=== PATIENT | female | born 1940 | race Caucasian/White ===

== ENCOUNTER 2024-06-27 17:48 | Emergency (ER) | payer MEDICARE, BC, SELFPAY ==
[2024-06-27 18:25] VITALS: BP 179/89; PULSE 70; RESP 20; TEMP 36.8; O2SAT 95; BMI 29.8
--- NOTE | 2024-06-27 18:52 | EKG_ITS ---
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1940 Requested By: Kevin Garner ([facility]) Order Number: [id number] Reading MD: Kevin Garner ([facility]) Measurements Intervals [place] Rate: 71 P: 79 NM: 229 QRS: -68 QRSD: 135 T: -1 QT: 419 QTc: 456 Interpretive Statements SINUS RHYTHM WITH FIRST DEGREE AV BLOCK RIGHT BUNDLE BRANCH BLOCK [120+ ms QRS DURATION, UPRIGHT V1, 40+ ms S IN I/aVL/V4/V5/V6] LEFT ANTERIOR FASCICULAR BLOCK [QRS AXIS <= -45, QR IN I, RS IN II] VOLTAGE CRITERIA FOR LVH [MEETS CRITERIA IN ONE OF: R(aVL), S(V1), R(V5), R(V5/V6)+S(V1)] POSSIBLE SEPTAL MYOCARDIAL INFARCTION , PROBABLY OLD [30 ms Q WAVE IN V1/V2] Compared to ECG 11/05/2023 11:49:34 No significant changes /store/S0/[id number].pdf
--- NOTE | 2024-06-27 18:52 | XR_ITS ---
Examination: CT brain head without contrast. 2-D sagittal coronal reconstructions Date and time of exam:June 27, 2024 1917 hrs. Comparison February 21, 2020 Indications: High blood pressure with headaches and dizziness beginning 3 days ago CTDI: vol (mGy):45.6 DLP: (mGycm):946 Technique: Multiple CT axial sections of the brain have been obtained, 5 mm slice thickness. Contrast has not been administered. 2-D sagittal, coronal reconstructions have been obtained Low dose protocols were performed. One or more of the following dose reduction techniques were used; automated exposure control, adjustment of the mA and/or KV according to patient size, use of iterative reconstruction technique. Findings: No significant ventricular enlargement. Intra-axial or extra-axial hemorrhage density is not seen. No mass effect or midline shift Basal cisterns are not remarkable. Fourth ventricle is midline. Cranial vault intact. Impression: Negative for acute hemorrhage, mass effect or midline shift As clinically warranted, brain MRI follow-up would best assess for acute ischemic change
--- NOTE | 2024-06-27 18:54 | PD.EDRME ---
Rapid Medical Screening Exam RME Arrival date/time: 06/27/24 17:48 84-year-old female with past medical history essential hypertension, depression, GERD, hypothyroidism, headache, dizziness, and high blood pressure. Patient reports was at doctor's office receiving pain shots to her back and was told her blood pressure was elevated and instructed to go to the ER for evaluation. Chief Complaint: General Adult/Misc Complain Time Seen by Provider: 06/27/24 18:49 Vital signs: Vital Signs Temperature 98.2 F 06/27/24 18:25 Pulse Rate 70 06/27/24 18:25 Respiratory Rate 20 06/27/24 18:25 Blood Pressure 179/89 H 06/27/24 18:25 Pulse Oximetry (%) 95 06/27/24 18:25 Oxygen Delivery Method Room Air 06/27/24 18:25 Vital signs reviewed by provider: Yes
[2024-06-27 19:32] LABS: Basophils % (Auto) 0 % (0-2.5); Eosinophils % (Auto) 0 % (0-10); Hematocrit 42.2 % (36.0-46.0); Hemoglobin 13.9 g/dL (12.0-16.0); Immature Granulocytes % (Auto) 1 % (0-0); Immature Granulocytes Auto 0.04 Thou/mm3 (0.00-0.00); Lymphocytes # (Auto) 0.8 Thou/mm3 (1.0-4.8); Lymphocytes % (Auto) 16 % (10-50); Mean Corpuscular HGB Conc 32.9 g/dl (31.0-37.0); Mean Corpuscular Hemoglobin 31.7 pg (25.0-35.0); Mean Corpuscular Volume 96 fL (80-100); Monocytes # (Auto) 0.1 Thou/mm3 (0.0-0.8); Monocytes % (Auto) 1 % (0-12); Neutrophils % (Auto) 81 % (37-80); Nucleated Red Blood Cell % 0 /100 WBC (0); Platelet Count 282 Thou/mm3 (140-440); RDW Standard Deviation 47.7 fL (36.4-46.3); Red Blood Count 4.38 Miln/mm3 (4.00-5.20)
[2024-06-27 19:37] LABS: Prothrombin Time 11.1 Seconds (9.0-12.2)
[2024-06-27 19:39] LABS: B-Type Natriuretic Peptide 144 pg/mL (0-100)
[2024-06-27 19:49] LABS: Collection Type, Urine Clean Catch; RBC,Urine 0 /hpf (0-3); WBC,Urine 0 /hpf (0-5)
[2024-06-27 19:52] LABS: Alanine Aminotransferase 7 U/L (10-49); Albumin, Serum 4.7 gm/dL (3.4-4.8); Albumin/Globulin Ratio 1.3 (1.2-2.2); Alkaline Phosphatase 98 U/L (46-116); Anion Gap 4 (7-16); Aspartate Amino Transferase 22 U/L (0-34); BUN/Creatinine Ratio 15 Ratio (12-20); Bilirubin,Total 0.4 mg/dL (0.3-1.2); Blood Urea Nitrogen 17 mg/dL (9-23); Calcium 9.9 mg/dL (8.3-10.6); Calcium (Corrected) 9.9 mg/dL (8.5-10.1); Chloride 105 mMol/L (98-107); Creatinine (Component) 1.1 mg/dL (0.6-1.3); Estimated Creatinine Clearance 34.6 mL/min (>60); Globulin 3.6 gm/dL (2.3-3.5); Glucose 133 mg/dL (74-106); Magnesium 2.2 mg/dL (1.6-2.6); Osmolality,Calculated 271 (275-295); Potassium 4.5 mMol/L (3.4-5.1); Sodium 134 mMol/L (136-145); Total Protein 8.3 gm/dL (5.7-8.2); Troponin I < 0.020 ng/mL (0.0-0.045); eGFR 49 See Note
[2024-06-27 20:02] VITALS: BP 220/112; PULSE 67
[2024-06-27] MEDS: hydrALAZINE HCL 10 MG TABLET PO (20:02)
[2024-06-27 20:19] LABS: Bacteria,Urine 1+; Bilirubin,Urine Negative (Negative); Blood,Urine Negative (Negative); Clarity,Urine Clear (Clear/Hazy); Color,Urine Lt-Yellow (Lt Yel-Yel); Glucose, Urine Trace (Negative); Ketones,Urine Negative (Negative); Leukocyte Esterase,Urine Negative (Negative); Nitrite,Urine Negative (Negative); PH,Urine 6.5 (5.0-7.0); Protein,Urine Trace (Neg - Trace); Specific Gravity,Urine 1.016 (1.001-1.035); Squamous Epithelial Cell,Urine < 1 /hpf (0-5); Urobilinogen,Urine Negative mg/dL (0.0-1.0)
[2024-06-27 20:34] LABS: Culture Indicated,Urine Yes
[2024-06-27 21:06] VITALS: BP 199/82; PULSE 72; RESP 18; O2SAT 99
[2024-06-27 21:34] VITALS: BP 203/114; PULSE 67; RESP 17; TEMP 36.7; O2SAT 96
[2024-06-27 23:00] VITALS: BP 241/131; PULSE 71; RESP 16; O2SAT 96
--- NOTE | 2024-06-27 23:09 | EDNOTE_ITS ---
ED General RME/HPI General Chief complaint: General Adult/Misc Complain Stated complaint: HIGH BLOOD PRESSURE 147/120 Time Seen by Provider: 06/27/24 18:49 Arrival date/time: 06/27/24 17:48 RME / HPI RME / HPI narrative: 06/27/24 17:48 84-year-old female with past medical history essential hypertension, depression, GERD, hypothyroidism, headache, dizziness, and high blood pressure. Patient reports was at doctor's office receiving pain shots to her back and was told her blood pressure was elevated and instructed to go to the ER for evaluation. ---- Dr. Egan?s Main ED Evaluation: 84yo female with pmhx HTN, HLD presents to the ED for a chief complaint of high blood pressure. Patient states she was at her PCP's office this morning receiving 4 shots in her back, reporting she was informed her blood pressure was elevated, and was advised to come in for evaluation. Patient states she normally takes her BP medications in the morning, but did not take them until she got home from her doctor's appointment this afternoon. She reports an associated headache. She denies any dizziness, weakness or any other associated symptoms. PCP: Dr. Galo Related Data Home Medications ?Medication ?Instructions ?Recorded ?Confirmed gabapentin 100 mg capsule 100 mg PO TID 04/11/20 12/12/23 zolpidem 5 mg tablet 5 mg PO QHSPRN PRN Insomnia 04/11/20 12/12/23 levothyroxine 125 mcg tablet 125 mcg PO QDAY 02/18/21 12/12/23 benzonatate 200 mg capsule 200 mg PO BID PRN 12/12/23 12/12/23 clonidine HCl 0.1 mg tablet 0.1 mg PO BID 12/12/23 12/12/23 hydrocodone 2.5 mg-acetaminophen 1 tab PO Q6H PRN 12/12/23 12/12/23 325 mg tablet losartan 100 mg tablet 100 mg PO QDAY 12/12/23 12/12/23 ondansetron HCl 8 mg tablet 8 mg PO Q8H 12/12/23 12/12/23 pantoprazole 20 mg tablet,delayed 20 mg PO QDAY 12/12/23 12/12/23 release sertraline 25 mg tablet 25 mg PO QDAY 12/12/23 12/12/23 zolpidem 5 mg tablet 5 mg PO QHS 12/12/23 12/12/23 Allergies Allergy/AdvReac Type Severity Reaction Status Date / Time morphine AdvReac Mild Rash Verified 06/27/24 17:51 Review of Systems Review of Systems Systems Reviewed: All systems reviewed, normal except as documented Narrative Review of Systems: Gen: No fever, no chills, no weight loss, + elevated BP EYES: No discharge, no visual changes, no pain HEENT: No ear pain, no congestion, no sore throat PULM: No shortness of breath, no cough, no congestion CV: No chest pain, no dyspnea on exertion, no palpitations GI: No nausea, no vomiting, no diarrhea, no pain, no constipation : No frequency, no urgency, no dysuria Musc/skel: No joint pain, no back pain Skin: No rash. Warm and dry. Psyc: No hallucinations, no depression Heme/Lymph: No easy bleeding or bruising tendencies Neuro: No weakness, + headache Past Medical History Past Medical History NEUROLOGIC: Negative Neurological Disorders or Seizures CARDIAC: Positive Hypercholesterolemia and Hypertension; Negative Cardiac Disorders or Congestive Heart Failure RESPIRATORY: Negative Chronic Obstructive Pulmonary Disease (COPD) or Asthma GASTROINTESTINAL: Positive Gastrointestinal Disorders, Colitis, Diverticulitis, Diverticulosis, Ulcer, Hiatal Hernia, Gastroesophageal Reflux Disease and Obesity GENITOURINARY: Positive Genitourinary Disorders; Negative Renal Disease REPRODUCTIVE: Positive Endometriosis and Previous Pregnancies MUSCULOSKELETAL: Positive Musculoskeletal Disorders, Bone Cancer and Arthritis ENT: Positive Cataracts and Blind ENDOCRINE: Positive Endocrine Disorders, Hyperthyroidism and Hypothyroidism; Negative Diabetes Mellitus Type 1 or Diabetes Mellitus Type 2 HEMATOLOGIC: Negative Blood Disorders or Sickle Cell Disease PSYCHO/SOCIAL: Positive Depression and Anxiety OTHER HISTORY: Positive Hospitalization, Shingles, Falls, Chicken Pox, Mumps and Ovarian Cancer; Negative Autoimmune Disease, Down Syndrome, Developmental Delay, Blood Transfusions, Anesthesia Reactions, MRSA, VRSA, Vancomycin-Resistant Enterococci or Cancer Family History FAMILY HISTORY: Positive Family Respiratory Disorders, Family Gastrointestinal Problems, Family Cancer and Family Surgery; Negative Family Neurologic Problems, Family Psychiatric Problems, Family Cardiac Disorders or Family Anesthesia Reaction Surgical History SURGICAL: Positive Eye Surgery, Tonsillectomy, Abdominal Surgery, Tracheostomy, Joint Replacement, Hysterectomy and Section; Negative Cardiac Surgery or Endocrine Surgery Social History SMOKING STATUS: Never smoker SECOND HAND EXPOSURE: No SUBSTANCE USE: does not use ED Exam Narrative Physical exam: GENERAL APPEARANCE: AxOx4, generally well-appearing, no acute distress. HEENT: NC, AT. MMM. EOMI, clear conjunctiva, oropharynx clear. NECK: Supple without lymphadenopathy. No stiffness or restricted ROM. HEART: Normal rate and regular rhythm, normal S1/S1, no m/r/g LUNGS: CTAB, moving air well. No crackles or wheezes are heard. ABDOMEN: Soft, nontender, nondistended with good bowel sounds heard. BACK: No midline C/T/L spine pain or deformity, No CVAT, no obvious deformity. EXTREMITIES: Without cyanosis, clubbing or edema. MUSCULOSKELETAL: FROM of all major joints, no chest tenderness NEUROLOGICAL: Grossly nonfocal. Alert and oriented, moving all 4 extremities. CN not formally tested but appear grossly intact. Observed to ambulate with normal gait. Skin: Warm and dry without any rash. Course Quality Measures none Orders Category Date Time Status EKG (ED ONLY) *Do not use* NOW Care 06/27/24 18:[address] head/brain wo con Stat Exams 06/27/24 18:52 Completed EKG (ED Only) Stat Exams 06/27/24 18:52 Draft B-Type Natriuretic Peptide Stat Lab 06/27/24 19:07 Completed CBC Stat Lab 06/27/24 19:07 Completed Comprehensive Metabolic Panel Stat Lab 06/27/24 19:07 Completed Magnesium Stat Lab 06/27/24 19:07 Completed Partial Thromboplastin Time Stat Lab 06/27/24 19:07 Completed Prothrombin Time with INR Stat Lab 06/27/24 19:07 Completed Troponin I Stat Lab 06/27/24 19:07 Completed Urinalysis, C/S if Indicated Stat Lab 06/27/24 19:44 Completed Urine Culture Stat Lab 06/27/24 19:44 Received Acetaminophen Tab [Tylenol Tab] Med 06/27/24 23:09 Discontinued 650 mg PO X1 ONE Ketorolac Inj [Toradol Inj] Med 06/27/24 23:10 Discontinued 30 mg IM X1 ONE hydrALAZINE HCL [Apresoline] Med 06/27/24 18:54 Discontinued 10 mg PO X1 ONE hydrALAZINE HCL [Apresoline] Med 06/27/24 18:53 Discontinued 25 mg PO X1 ONE Vital Signs Vital signs: Vital Signs Temperature 98.2 F 06/27/24 18:25 Pulse Rate 70 06/27/24 18:25 Respiratory Rate 20 06/27/24 18:25 Blood Pressure 179/89 H 06/27/24 18:25 Pulse Oximetry (%) 95 06/27/24 18:25 Oxygen Delivery Method Room Air 06/27/24 18:25 Pulse ox is 95% on room air, which is normal according to my interpretation. [facility] Patient data External records reviewed:: [facility] previous records (Per chart review, patient was seen here on 03/23/24 for COVID.) Clinical information provided by:: patient Social determinants that could affect healthcare access:: none Patient has the following chronic illnesses:: HTN, HLD How is presenting disease/condition affected by chronic disease/condition?: c aused by Evaluation data The following diagnostics were reviewed and interpreted by me:: lab results, radiology exam(s) and EKG tracing(s) Lab and/or radiology exams considered but not ordered:: none Interpretation Summary: [facility] Report Signed Patient: ABHAY SPRING. Record#: [id number] Birthdate: 1940 Age/Sex: 84 / F Location: [facility] Attending Dr: Ordering Physician: Cami Garner (DEMI)Kevin Date of Service: 06/27/24 Procedure(s): CT head/brain wo [facility] Accession Number(s): [id number] cc: Ravi Estrada MD; Eh Galo MD; Cami Garner (DEMI),Kevin SIMMS~ Examination: CT brain head without contrast. 2-D sagittal coronal reconstructions Date and time of exam:June 27, 2024 1917 hrs. Comparison February 21, 2020 Indications: High blood pressure with headaches and dizziness beginning 3 days ago CTDI: vol (mGy):45.6 DLP: (mGycm):946 Technique: Multiple CT axial sections of the brain have been obtained, 5 mm slice thickness. Contrast has not been administered. 2-D sagittal, coronal reconstructions have been obtained Low dose protocols were performed. One or more of the following dose reduction techniques were used; automated exposure control, adjustment of the mA and/or KV according to patient size, use of iterative reconstruction technique. Findings: No significant ventricular enlargement. Intra-axial or extra-axial hemorrhage density is not seen. No mass effect or midline shift Basal cisterns are not remarkable. Fourth ventricle is midline. Cranial vault intact. Impression: Negative for acute hemorrhage, mass effect or midline shift As clinically warranted, brain MRI follow-up would best assess for acute ischemic change Dictated By: Ravi Estrada MD Signed By: <Electronically signed by Ravi Estrada MD in OV> 06/27/241957 EKG done at 1859, sinus rhythm, rate of 71, widened QRS, RBBB, no acute ST or T wave changes, no STEMI, according to my interpretation. Medications Medications considered but not ordered:: none Medication administrations:: Medication Administration History Discontinued Medications Acetaminophen (Acetaminophen 325 Mg Tablet) 650 mg PO X1 ONE Stop: 06/27/24 23:10 Last Admin: 06/27/24 23:21 Dose: 650 mg Documented By: RH Hydralazine HCl (Hydralazine Hcl 25 Mg Tablet) 25 mg PO X1 ONE Stop: 06/27/24 18:54 Last Admin: 06/27/24 19:16 Dose: Not Given Documented By: EE Non-Admin Reason: Discontinued Hydralazine HCl (Hydralazine Hcl 10 Mg Tablet) 10 mg PO X1 ONE Stop: 06/27/24 18:55 Last Admin: 06/27/24 20:02 Dose: 10 mg Documented By: EE Ketorolac Tromethamine (Ketorolac Inj 60 Mg/2 Ml Vial) 30 mg IM X1 ONE Stop: 06/27/24 23:11 Last Admin: 06/27/24 23:19 Dose: 30 mg Documented By: RH see above Consultations Consultation(s) initiated? (list below): No Diagnosis Differential Diagnosis ED Complaint MDM: headache, HTN urgency, HTN emergency Most likely diagnosis given after review of the tests above:: see below Admission Indicated Admission indicated?: not indicated Explain why admission is indicated or not indicated:: Patient is stable for outpatient management. Admission Request Was there a request for admission?: No Disposition Plan Disposition Plan: Discharge Discharge Attestation Discharge Attestation: The patient and all family members were given an opportunity to ask questions and understood the discharge instructions. Discharge instructions specifically effects, indications for sooner follow up or return to the emergency department, and the expected course of current diagnosis. Patient condition: Stable Medical Decision Making MDM Narrative MDM Narrative: Ms. Spring is a very pleasant, well-appearing female who was sent in by her pain specialist due to elevated blood pressures. She is otherwise asymptomatic and is essentially sent in for a incidental measurement during her triage. She has been compliant with her blood pressure medicines however she does note that she took her dose today a little bit later than normal due to her pain specialist appointment. Neurologically she is intact without signs of distress. Suspect this is more of a component of chronic elevated blood pressure and as she is asymptomatic without signs of endorgan damage she is appropriate for outpatient follow-up. Laboratory testing and head CT were sent via the RME process which shows no acute findings. This further corroborates the lack of endorgan damage and although her blood pressure is markedly high, there is no indication for immediate reduction emergently of her blood pressure and can be monitored and managed by her primary care physician. Due to the actual value and elevated blood pressure she does meet criteria for hypertensive urgency without emergency Scribe Attestation: 06/27/24 - I, Sandee Sheehan, scribing for and in the presence of Dr. Egan. Differential Diagnosis Differential Diagnosis: headache, HTN urgency, HTN emergency Lab Data 06/27/24 19:07 06/27/24 19:07 Labs: Lab Results 06/27/24 06/27/24 Range/Units 19:07 19:44 WBC 5.0 (3.6-11.0) Thou/mm3 RBC 4.38 (4.00-5.20) Miln/mm3 Hgb 13.9 (12.0-16.0) g/dL Hct 42.2 (36.0-46.0) % MCV 96 (80-100) fL MCH 31.7 (25.0-35.0) pg MCHC 32.9 (31.0-37.0) g/dl RDW Std Deviation 47.7 H (36.4-46.3) fL Plt Count 282 (140-440) Thou/mm3 Neut % (Auto) 81 H (37-80) % Lymph % (Auto) 16 (10-50) % Frio % (Auto) 1 (0-12) % Eos % (Auto) 0 (0-10) % Baso % (Auto) 0 (0-2.5) % Neut # (Auto) 4.0 (1.8-7.7) Thou/mm3 Lymph # (Auto) 0.8 L (1.0-4.8) Thou/mm3 Frio # (Auto) 0.1 (0.0-0.8) Thou/mm3 Eos # (Auto) 0.0 (0.0-0.5) Thou/mm3 Baso # (Auto) 0.0 (0.0-0.2) Thou/mm3 Immature Gran # (Auto) 0.04 H (0.00-0.00) Thou/mm3 Absolute Nucleated RBC 0.00 (0.00-0.00) Thou/mm3 Immature Gran % 1 H (0-0) % Nucleated RBC % 0 (0) /100 WBC PT 11.1 (9.0-12.2) Seconds INR 1.0 (0.9-1.3) APTT 25.0 (22.0-36.0) Seconds Sodium 134 L (136-145) mMol/L Potassium 4.5 (3.4-5.1) mMol/L Chloride 105 (98-107) mMol/L Carbon Dioxide 25.0 (20.0-31.0) mMol/L Anion Gap 4 L (7-16) BUN 17 (9-23) mg/dL Creatinine 1.1 (0.6-1.3) mg/dL Estim Creat Clear Calc 34.6 L (>60) mL/min eGFR 49 L (60 - ) See Note BUN/Creatinine Ratio 15 (12-20) Ratio Glucose 133 H (74-106) mg/dL Calculated Osmolality 271 L (275-295) Calcium 9.9 (8.3-10.6) mg/dL Corrected Calcium 9.9 (8.5-10.1) mg/dL Magnesium 2.2 (1.6-2.6) mg/dL Total Bilirubin 0.4 (0.3-1.2) mg/dL AST 22 (0-34) U/L ALT 7 L (10-49) U/L Alkaline Phosphatase 98 (46-116) U/L Troponin I < 0.020 (0.0-0.045) ng/mL B-Natriuretic Peptide 144 H (0-100) pg/mL Total Protein 8.3 H (5.7-8.2) gm/dL Albumin 4.7 (3.4-4.8) gm/dL Globulin 3.6 H (2.3-3.5) gm/dL Albumin/Globulin Ratio 1.3 (1.2-2.2) Ur Collection Type Clean Catch Urine Color Lt-Yellow (Lt Yel-Yel) Urine Clarity Clear (Clear/Hazy) Urine pH 6.5 (5.0-7.0) Ur Specific [place] 1.016 (1.001-1.035) Urine Protein Trace (Neg - Trace) Urine Glucose (UA) Trace (Negative) Urine Ketones Negative (Negative) Urine Blood Negative (Negative) Urine Nitrite Negative (Negative) Urine Bilirubin Negative (Negative) Urine Urobilinogen (Auto) Negative (0.0-1.0) mg/dL Ur Leukocyte Esterase Negative (Negative) Urine RBC 0 (0-3) /hpf Urine WBC 0 (0-5) /hpf Ur Squamous Epith Cells < 1 (0-5) /hpf Urine Bacteria 1+ A (None) Ur Culture Indicated? Yes Discharge Plan Plan Patient Disposition: HOME (Self Care) Prescriptions/Referrals Prescriptions/Med Rec: No Action benzonatate 200 mg capsule 200 mg PO BID PRN losartan 100 mg tablet 100 mg PO QDAY pantoprazole 20 mg tablet,delayed release (DR/EC) 20 mg PO QDAY sertraline 25 mg tablet 25 mg PO QDAY zolpidem 5 mg tablet 5 mg PO QHS clonidine HCl 0.1 mg tablet 0.1 mg PO BID ondansetron HCl 8 mg tablet 8 mg PO Q8H hydrocodone-acetaminophen 2.5-325 mg tablet 1 tab PO Q6H PRN levothyroxine 125 mcg tablet 125 mcg PO QDAY Patient Comments: 125 mcg PO ACBR zolpidem 5 mg Tablet 5 mg PO QHSPRN PRN (Reason: Insomnia) Hold Instructions: Resume on 07/22/22. gabapentin 100 mg Capsule 100 mg PO TID Referrals: Eh Galo MD [Primary Care Provider] - In 1 week Problem List Clinical Impression: Hypertension, Headache Patient/Caregiver Discharge Instructions Education Materials: Self-Care for Headaches, ED Hypertension, Established Additional Instructions: Follow-up with your primary care doctor in 1 to 2 days for recheck. You can return to the emergency department sooner symptoms worsen or if you notice any new, concerning issues Print Language: Northern Irish Stand Alone Forms: [employer] Award Info., Patient Portal Info Letter
[2024-06-27] MEDS: KETOROLAC INJ 60 MG/2 ML VIAL 30 MG IM (23:19)
[2024-06-27] MEDS: ACETAMINOPHEN 325 MG TABLET 650 MG PO (23:21)
[2024-06-28] VITALS: BP 239/121; PULSE 69; RESP 20; O2SAT 97
--- NOTE | 2024-06-28 00:29 | PC.NURSE ---
0000 put in DC orders for Pt, RN informed MD Pts Blood Pressure still high at (239/121). said to DC Pt and that they could take home BP Meds in the AM for the high BP.
== END 2024-06-28 00:25 | disposition home or self-care (01) ==
PROVIDERS: Emergency Provider Emergency Medicine; PCP Family Medicine
DX: I10 Essential (primary) hypertension (principal); I44.0 Atrioventricular block, first degree; I45.10 Unspecified right bundle-branch block; I44.4 Left anterior fascicular block; R93.0 Abnormal findings on diagnostic imaging of skull and head, not elsewhere classified
CPT/HCPCS: 36415; 70450; 80053; 81001; 83735; 83880; 84484; 85025; 85610; 85730; 87077; 87086; 87186; 93005; 96372; 99284; J1885; A9270

== ENCOUNTER → 2024-08-23 | Outpatient (CLI) | payer MEDICARE, BC, SELFPAY ==
--- NOTE | 2024-08-23 | XR_ITS ---
Examination: PA lateral chest 2 views TECHNIQUE: Upright PA lateral chest 2 views Exam date and time: August 23 2024 to 36 hours Comparison April 02, 2024 INDICATIONS: Coughing beginning 2 weeks ago. FINDINGS: Normal heart size. Lungs are clear. Prominent osteopenia. Reversal shoulder arthroplasty with satisfactory alignment IMPRESSION: No pneumonia or pulmonary edema
== END | disposition home or self-care (01) ==
PROVIDERS: PCP Family Medicine; Referring Provider Internal Medicine; Visit Provider Internal Medicine
DX: R05.9 Cough, unspecified (principal)
CPT/HCPCS: 71046

== ENCOUNTER → 2024-09-10 | Outpatient (CLI) | payer MEDICARE, BC, SELFPAY ==
--- NOTE | 2024-09-10 13:13 | XR_ITS ---
Examination: Abdomen sonogram, complete Date and time of exam: September 10, 2024 1351 hours INDICATIONS: Epigastric pain several years. Technique: Multiple real-time grayscale transabdominal sonographic images of the abdomen have been obtained. Findings: Normal gallbladder Normal common bile duct 0.1 cm Pancreatic head 2.9 cm Aorta not enlarged Liver 14.8 cm fatty infiltration 5.1 cm liver cyst Normal hepatopedal portal venous flow Patent IVC Right kidney 10.1 x 4.5 x 4.8 cm cortex 1.5 cm Left kidney 10.0 x 4.2 x 4.4 cm in the cortex 1.5 cm Moderate renal parenchymal scar formation Spleen 8.2 cm IMPRESSION: Normal gallbladder 5.1 cm benign right lobe liver cyst Moderate bilateral renal parenchymal scar formation, no hydronephrosis
--- NOTE | 2024-09-10 13:13 | XR_ITS ---
Examination: Pelvic ultrasound, transabdominal, complete Technique: Transabdominal ultrasound of the pelvis performed using grayscale imaging Date and time of exam: September 10, 2024 1305 hours INDICATIONS: Left lower abdominal and pelvic pain several years, history removal uterus and ovaries age 27 FINDINGS: Absent uterus absent ovaries No free fluid in the pelvis No pelvic mass IMPRESSION: No pelvic mass
[2024-09-10 15:29] LABS: Basophils % (Auto) 1 % (0-2.5); Eosinophils # (Auto) 0.2 Thou/mm3 (0.0-0.5); Eosinophils % (Auto) 3 % (0-10); Hematocrit 37.2 % (36.0-46.0); Immature Granulocytes % (Auto) 0 % (0-0); Immature Granulocytes Auto 0.02 Thou/mm3 (0.00-0.00); Lymphocytes # (Auto) 1.4 Thou/mm3 (1.0-4.8); Lymphocytes % (Auto) 23 % (10-50); Mean Corpuscular HGB Conc 32.3 g/dl (31.0-37.0); Mean Corpuscular Hemoglobin 31.4 pg (25.0-35.0); Mean Corpuscular Volume 97 fL (80-100); Monocytes # (Auto) 0.4 Thou/mm3 (0.0-0.8); Monocytes % (Auto) 7 % (0-12); Neutrophils % (Auto) 66 % (37-80); Nucleated Red Blood Cell % 0 /100 WBC (0); Platelet Count 313 Thou/mm3 (140-440); RDW Standard Deviation 50.8 fL (36.4-46.3); Red Blood Count 3.82 Miln/mm3 (4.00-5.20); White Blood Count 6.2 Thou/mm3 (3.6-11.0)
[2024-09-10 16:09] LABS: Alanine Aminotransferase 9 U/L (10-49); Albumin, Serum 4.1 gm/dL (3.4-4.8); Albumin/Globulin Ratio 1.3 (1.2-2.2); Alkaline Phosphatase 87 U/L (46-116); Amylase 133 U/L (30-118); Anion Gap 9 (7-16); Aspartate Amino Transferase 15 U/L (0-34); BUN/Creatinine Ratio 28 Ratio (12-20); Bilirubin,Total 0.5 mg/dL (0.3-1.2); Blood Urea Nitrogen 33 mg/dL (9-23); Calcium 9.4 mg/dL (8.3-10.6); Calcium (Corrected) 9.4 mg/dL (8.5-10.1); Carbon Dioxide 25.9 mMol/L (20.0-31.0); Chloride 104 mMol/L (98-107); Creatinine (Component) 1.2 mg/dL (0.6-1.3); Globulin 3.1 gm/dL (2.3-3.5); Glucose 85 mg/dL (74-106); Lipase 40 U/L (12-53); Osmolality,Calculated 283 (275-295); Potassium 4.6 mMol/L (3.4-5.1); Sodium 139 mMol/L (136-145); Total Protein 7.2 gm/dL (5.7-8.2); eGFR 44 See Note
== END | disposition home or self-care (01) ==
PROVIDERS: PCP Family Medicine; Referring Provider Student in an Organized Health Care Education/Training Program; Visit Provider Student in an Organized Health Care Education/Training Program
DX: K76.89 Other specified diseases of liver (principal); N28.89 Other specified disorders of kidney and ureter; R10.9 Unspecified abdominal pain; I10 Essential (primary) hypertension
CPT/HCPCS: 36415; 76700; 76856; 80053; 82150; 83690; 85025

== ENCOUNTER → 2024-10-11 | Outpatient (CLI) | payer MEDICARE, BC, SELFPAY ==
[2024-10-11 16:52] LABS: Amphetamine/Methamp Scrn,U Negative (Negative); Barbiturate Screen,Urine Negative (Negative); Benzodiazepines Screen,Urine Negative (Negative); Benzoylecgonine Screen, Ur Negative (Negative); Fentanyl Screen,Urine Negative (Negative); Opiate Screen,Urine Positive (Negative); THC Screen,Urine Negative (Negative)
== END | disposition home or self-care (01) ==
PROVIDERS: PCP Family Medicine; Referring Provider Family Medicine; Visit Provider Family Medicine
DX: Z71.51 Drug abuse counseling and surveillance of drug abuser (principal); M54.2 Cervicalgia
CPT/HCPCS: 80307

== ENCOUNTER → 2024-10-11 | Outpatient (CLI) | payer MEDICARE, BC, SELFPAY ==
--- NOTE | 2024-10-11 14:37 | XR_ITS ---
Examination: CT abdomen and pelvis without contrast. Coronal 3-D reconstructions. Sagittal 2-D reconstructions. Date and time of exam:October 11, 2024 1517 hrs. Comparison November 05, 2023 Indications: Right upper abdominal pain left upper abdominal pain clinical diagnosis hernia CTDI: vol (mGy): 11.2 DLP: (mGycm): 581 Technique: Axial images of the abdomen have been obtained, 3 mm slice thickness Intravenous contrast material has not been administered. Low dose protocols were performed. One or more of the following dose reduction techniques were used; automated exposure control, adjustment of the mA and/or KV according to patient size, use of iterative reconstruction technique. Findings: Benign liver cysts Contracted gallbladder Spleen is not enlarged Small retrocardiac gastric hernia No pancreatic mass 20 mm left adrenal nodule Moderate renal parenchymal scar formation, no hydronephrosis Abdominal aortic calcification no aneurysmal dilatation No pericecal inflammatory change Colonic diverticulosis, no diverticulitis Contracted urinary bladder 19 mm fat-containing umbilical hernia defect Impression: 19 mm fat-containing umbilical hernia defect 20 mm indeterminate left adrenal nodule, recommend MRI abdomen adrenal glands follow-up pre and postcontrast
== END | disposition home or self-care (01) ==
PROVIDERS: PCP Student in an Organized Health Care Education/Training Program; Referring Provider Student in an Organized Health Care Education/Training Program; Visit Provider Student in an Organized Health Care Education/Training Program
DX: K42.9 Umbilical hernia without obstruction or gangrene (principal); E27.8 Other specified disorders of adrenal gland
CPT/HCPCS: 74176

== ENCOUNTER 2024-10-21 15:12 | Emergency (ER) | payer MEDICARE, BC, SELFPAY ==
[2024-10-21 15:13] VITALS: BMI 28.3
[2024-10-21 15:55] VITALS: BP 175/115; BP 179/100; PULSE 68; RESP 18; TEMP 36.6; O2SAT 96
--- NOTE | 2024-10-21 16:09 | XR_ITS ---
EXAMINATION: CT abdomen pelvis wo con ORDERING PROVIDER: Ron Mariano (NUCLEAR TECHNICIAN), NUCLEAR TECHNICIAN HISTORY: Lower abdominal pain for several days, concern for urinary tract infection. TECHNIQUE: Without intravenous or oral contrast, CT was used in the volumetric, helical imaging acquisition of the abdomen and pelvis with 2-D and 3-D reformats generated on a separate workstation and submitted for interpretation. Institutional dose reducing protocols were utilized. Evaluation of hollow viscus and solid viscera is limited secondary to lack of intravenous and oral contrast. RADIATION DOSE: DLP 556 mGy-cm COMPARISON: 10/11/2024, CT abdomen pelvis. FINDINGS: LIVER: Multiple cystic lesions again noted, measuring up to 4.1 cm right hepatic lobe. BILIARY: Unremarkable. PANCREAS: Unremarkable. SPLEEN: Unremarkable. ADRENAL GLANDS: 1.7 cm indeterminate left adrenal nodule. KIDNEYS: Again noted is bilateral perinephric fat stranding. This is moderately increased on the right compared to prior. Again noted is a right-sided extrarenal pelvis. No hydronephrosis. No obstructive nephrolithiasis. URETERS: No stones visualized. No hydroureter. BLADDER: Only mildly distended. CT provides limited evaluation of the urinary bladder. HOLLOW VISCUS: Innumerable colonic diverticula, most severe in the sigmoid colon. No surrounding inflammatory changes. Small hiatal hernia. VASCULATURE: Ectatic aorta and iliac vessels. Moderate aortoiliac calcific atherosclerotic disease calcifications of the mitral annulus, coronary arteries, aortic valve PELVIS: Post hysterectomy changes. LYMPH NODES: Limited evaluation without contrast. Grossly unremarkable. LUNG BASES: Bibasilar emphysematous changes. BONES: Severe degenerative changes of the lumbar spine, including scoliotic curvature, multilevel degenerative disc disease, diffuse osteopenia. Unchanged grade 1 anterolisthesis of L3 on L4 and mild anterior compression deformity. ABDOMINAL WALL: 1.9 cm neck fat filled umbilical hernia.r IMPRESSION: 1. Increased fat stranding about the right kidney without obstructive stone. Query clinical signs of pyelonephritis. 2. Severe diverticulosis without CT findings for diverticulitis. 3. Significant vasculopathic changes. 4. Similar-appearing diffuse osteopenia with mild anterior L3 compression deformity. 5. 1.7 cm indeterminate left adrenal nodule, recommend MR adrenal gland protocol.
--- NOTE | 2024-10-21 16:10 | PD.EDRME ---
Rapid Medical Screening Exam RME Arrival date/time: 10/21/24 15:12 84-year-old female currently on antibiotics for UTI presents emergency department complaints of abdominal pain Chief Complaint: Urogenital-Female Vital signs: Vital Signs Temperature 97.9 F 10/21/24 15:55 Pulse Rate 68 10/21/24 15:55 Respiratory Rate 18 10/21/24 15:55 Blood Pressure 175/115 H 10/21/24 15:55 Pulse Oximetry (%) 96 10/21/24 15:55 Oxygen Delivery Method Room Air 10/21/24 15:55
[2024-10-21 16:45] LABS: Basophils % (Auto) 0 % (0-2.5); Eosinophils # (Auto) 0.3 Thou/mm3 (0.0-0.5); Eosinophils % (Auto) 5 % (0-10); Hematocrit 37.1 % (36.0-46.0); Hemoglobin 12.1 g/dL (12.0-16.0); Immature Granulocytes % (Auto) 0 % (0-0); Immature Granulocytes Auto 0.01 Thou/mm3 (0.00-0.00); Lymphocytes # (Auto) 1.3 Thou/mm3 (1.0-4.8); Lymphocytes % (Auto) 20 % (10-50); Mean Corpuscular HGB Conc 32.6 g/dl (31.0-37.0); Mean Corpuscular Hemoglobin 31.7 pg (25.0-35.0); Mean Corpuscular Volume 97 fL (80-100); Monocytes # (Auto) 0.5 Thou/mm3 (0.0-0.8); Monocytes % (Auto) 7 % (0-12); Neutrophils # (Auto) 4.6 Thou/mm3 (1.8-7.7); Neutrophils % (Auto) 68 % (37-80); Nucleated Red Blood Cell % 0 /100 WBC (0); Platelet Count 280 Thou/mm3 (140-440); RDW Standard Deviation 48.2 fL (36.4-46.3); Red Blood Count 3.82 Miln/mm3 (4.00-5.20); White Blood Count 6.7 Thou/mm3 (3.6-11.0)
[2024-10-21 17:08] LABS: Collection Type, Urine Clean Catch
[2024-10-21 17:12] LABS: Alanine Aminotransferase < 7 U/L (10-49); Albumin, Serum 4.1 gm/dL (3.4-4.8); Albumin/Globulin Ratio 1.3 (1.2-2.2); Alkaline Phosphatase 86 U/L (46-116); Anion Gap 6 (7-16); Aspartate Amino Transferase 13 U/L (0-34); BUN/Creatinine Ratio 17 Ratio (12-20); Bilirubin,Total 0.4 mg/dL (0.3-1.2); Blood Urea Nitrogen 17 mg/dL (9-23); Calcium 9.6 mg/dL (8.3-10.6); Calcium (Corrected) 9.6 mg/dL (8.5-10.1); Carbon Dioxide 27.1 mMol/L (20.0-31.0); Chloride 104 mMol/L (98-107); Globulin 3.1 gm/dL (2.3-3.5); Glucose 96 mg/dL (74-106); Lipase 39 U/L (12-53); Osmolality,Calculated 275 (275-295); Potassium 4.2 mMol/L (3.4-5.1); Sodium 137 mMol/L (136-145); Total Protein 7.2 gm/dL (5.7-8.2); eGFR 55 See Note
[2024-10-21 17:22] LABS: Bilirubin,Urine Negative (Negative); Blood,Urine Negative (Negative); Clarity,Urine Clear (Clear/Hazy); Color,Urine Lt-Yellow (Lt Yel-Yel); Culture Indicated,Urine Not Indicated; Glucose, Urine Negative (Negative); Ketones,Urine Negative (Negative); Leukocyte Esterase,Urine Negative (Negative); Nitrite,Urine Negative (Negative); PH,Urine 6.5 (5.0-7.0); Protein,Urine Negative (Neg - Trace); RBC,Urine < 1 /hpf (0-3); Specific Gravity,Urine 1.011 (1.001-1.035); Squamous Epithelial Cell,Urine 2 /hpf (0-5); Urobilinogen,Urine Negative mg/dL (0.0-1.0); WBC,Urine < 1 /hpf (0-5)
[2024-10-21 18:59] VITALS: BP 179/91; PULSE 71; RESP 19; TEMP 36.7; O2SAT 98
--- NOTE | 2024-10-21 21:07 | PD.EDFMALE ---
ED Female Urogenital RME/HPI General Chief complaint: Urogenital-Female Stated complaint: POSSIBLE UTI, LOWER ABD PAIN Time Seen by Provider: 10/21/24 20:41 Arrival date/time: 10/21/24 15:12 This is an 84-year-old female who is currently on antibiotics complains of dysuria. Patient currently on Macrobid. Patient reports that this is the second time she has been on Macrobid and it does not seem to be helping. Patient complains of back pain and urinary symptoms. Patient also has a history of hypothyroidism hypertension, depression and GERD. RME / HPI RME / HPI Narrative: 10/21/24 15:12 84-year-old female currently on antibiotics for UTI presents emergency department complaints of abdominal pain Related Data Home Medications ?Medication ?Instructions ?Recorded ?Confirmed gabapentin 100 mg capsule 100 mg PO TID 04/11/20 12/12/23 zolpidem 5 mg tablet 5 mg PO QHSPRN PRN Insomnia 04/11/20 12/12/23 Held on 07/21/22. Instructions: Resume on 07/22/22. levothyroxine 125 mcg tablet 125 mcg PO QDAY 02/18/21 12/12/23 benzonatate 200 mg capsule 200 mg PO BID PRN 12/12/23 12/12/23 clonidine HCl 0.1 mg tablet 0.1 mg PO BID 12/12/23 12/12/23 hydrocodone 2.5 mg-acetaminophen 1 tab PO Q6H PRN 12/12/23 12/12/23 325 mg tablet losartan 100 mg tablet 100 mg PO QDAY 12/12/23 12/12/23 ondansetron HCl 8 mg tablet 8 mg PO Q8H 12/12/23 12/12/23 pantoprazole 20 mg tablet,delayed 20 mg PO QDAY 12/12/23 12/12/23 release sertraline 25 mg tablet 25 mg PO QDAY 12/12/23 12/12/23 zolpidem 5 mg tablet 5 mg PO QHS 12/12/23 12/12/23 Allergies Allergy/AdvReac Type Severity Reaction Status Date / Time morphine AdvReac Mild Rash Verified 10/21/24 15:13 Review of Systems Review of Systems Systems Reviewed: All systems reviewed, normal except as documented Past Medical History Past Medical History NEUROLOGIC: Negative Neurological Disorders or Seizures CARDIAC: Positive Hypercholesterolemia and Hypertension; Negative Cardiac Disorders or Congestive Heart Failure RESPIRATORY: Negative Chronic Obstructive Pulmonary Disease (COPD) or Asthma GASTROINTESTINAL: Positive Gastrointestinal Disorders, Colitis, Diverticulitis, Diverticulosis, Ulcer, Hiatal Hernia, Gastroesophageal Reflux Disease and Obesity GENITOURINARY: Positive Genitourinary Disorders; Negative Renal Disease REPRODUCTIVE: Positive Endometriosis and Previous Pregnancies MUSCULOSKELETAL: Positive Musculoskeletal Disorders, Bone Cancer and Arthritis ENT: Positive Cataracts and Blind ENDOCRINE: Positive Endocrine Disorders, Hyperthyroidism and Hypothyroidism; Negative Diabetes Mellitus Type 1 or Diabetes Mellitus Type 2 HEMATOLOGIC: Negative Blood Disorders or Sickle Cell Disease PSYCHO/SOCIAL: Positive Depression and Anxiety OTHER HISTORY: Positive Hospitalization, Shingles, Falls, Chicken Pox, Mumps and Ovarian Cancer; Negative Autoimmune Disease, Down Syndrome, Developmental Delay, Blood Transfusions, Anesthesia Reactions, MRSA, VRSA, Vancomycin-Resistant Enterococci or Cancer Family History FAMILY HISTORY: Positive Family Respiratory Disorders, Family Gastrointestinal Problems, Family Cancer and Family Surgery; Negative Family Neurologic Problems, Family Psychiatric Problems, Family Cardiac Disorders or Family Anesthesia Reaction Surgical History SURGICAL: Positive Eye Surgery, Tonsillectomy, Abdominal Surgery, Tracheostomy, Joint Replacement, Hysterectomy and Section; Negative Cardiac Surgery or Endocrine Surgery Social History SMOKING STATUS: Never smoker SECOND HAND EXPOSURE: No SUBSTANCE USE: does not use ED Exam General General appearance: Present alert and in no apparent distress Head Head exam: Present atraumatic Eye Eye exam: Present normal appearance, PERRL and EOMI ENT ENT exam: Present normal exam, normal oropharynx and mucous membranes moist Neck Neck exam: Present normal inspection, full ROM and trachea midline Chest Chest inspection: Present normal inspection and symmetric chest wall rise Respiratory Respiratory exam: Present normal lung sounds bilaterally Cardiovascular Cardiovascular exam: Present regular rate Abdominal Exam Abdominal exam: Present soft Extremities Exam Extremities exam: Present normal inspection and full ROM Back Exam Back exam: Present normal inspection and full ROM Neurological Exam Neurological exam: Present alert, oriented X3 and CN II-XII intact Psychiatric Psychiatric exam: Present normal affect and normal mood Skin Skin exam: Present warm and dry Course Quality Measures none Orders Category Date Time Status CT abdomen pelvis wo con Stat Exams 10/21/24 16:09 Completed CBC Stat Lab 10/21/24 16:12 Completed Comprehensive Metabolic Panel Stat Lab 10/21/24 16:12 Completed Lipase Stat Lab 10/21/24 16:12 Completed UA, C/S IF [Urinalysis, C/S if Indicated] Stat Lab 10/21/24 16:53 Completed cefTRIAXone [Rocephin] 1,000 mg Med 10/21/24 21:05 Discontinued Lidocaine 1% 20 ml [Xylocaine 1% 20 ML] 2.1 ml IM X1 Vital Signs Vital signs: Vital Signs Temperature 97.9 F 10/21/24 15:55 Pulse Rate 68 10/21/24 15:55 Respiratory Rate 18 10/21/24 15:55 Blood Pressure 175/115 H 10/21/24 15:55 Pulse Oximetry (%) 96 10/21/24 15:55 Oxygen Delivery Method Room Air 10/21/24 15:55 Urogenital - Female MDM Narrative MDM Narrative:: ct abdomen and pelvis: FINDINGS: LIVER: Multiple cystic lesions again noted, measuring up to 4.1 cm right hepatic lobe. BILIARY: Unremarkable. PANCREAS: Unremarkable. SPLEEN: Unremarkable. ADRENAL GLANDS: 1.7 cm indeterminate left adrenal nodule. KIDNEYS: Again noted is bilateral perinephric fat stranding. This is moderately increased on the right compared to prior. Again noted is a right-sided extrarenal pelvis. No hydronephrosis. No obstructive nephrolithiasis. URETERS: No stones visualized. No hydroureter. BLADDER: Only mildly distended. CT provides limited evaluation of the urinary bladder. HOLLOW VISCUS: Innumerable colonic diverticula, most severe in the sigmoid colon. No surrounding inflammatory changes. Small hiatal hernia. VASCULATURE: Ectatic aorta and iliac vessels. Moderate aortoiliac calcific atherosclerotic disease calcifications of the mitral annulus, coronary arteries, aortic valve PELVIS: Post hysterectomy changes. LYMPH NODES: Limited evaluation without contrast. Grossly unremarkable. LUNG BASES: Bibasilar emphysematous changes. BONES: Severe degenerative changes of the lumbar spine, including scoliotic curvature, multilevel degenerative disc disease, diffuse osteopenia. Unchanged grade 1 anterolisthesis of L3 on L4 and mild anterior compression deformity. ABDOMINAL WALL: 1.9 cm neck fat filled umbilical hernia.r IMPRESSION: 1. Increased fat stranding about the right kidney without obstructive stone. Query clinical signs of pyelonephritis. 2. Severe diverticulosis without CT findings for diverticulitis. 3. Significant vasculopathic changes. 4. Similar-appearing diffuse osteopenia with mild anterior L3 compression deformity. 5. 1.7 cm indeterminate left adrenal nodule, recommend MR adrenal gland protocol. I reviewed CT scan at length with patient. Answered questions. Patient reports that she just had a CT scan and had very similar results. She states that she will talk to her primary provider about findings. Patient's labs show a white count of 6.7 otherwise unremarkable BMP unremarkable lipase 39 UA unremarkable but patient is currently on antibiotics. Patient states she is not getting better on current antibiotic therapy. Will treat with Levaquin. Patient previous urine cultures showed E. coli. Will have patient follow-up with urine culture with primary provider. Patient comfortable plan of care. follow up with primary provider in 1-2 days. Come back to ED if symptoms change or worsen. Patient data External records reviewed:: [facility] previous records Clinical information provided by:: patient Social determinants that could affect healthcare access:: none Patient has the following chronic illnesses:: see hpi How is presenting disease/condition affected by chronic disease/condition?: uneffected by Evaluation data The following diagnostics were reviewed and interpreted by me:: lab results and radiology exam(s) Lab and/or radiology exams considered but not ordered:: none Interpretation Summary: see note Medications / Prescriptions Medications or Prescriptions considered but not ordered:: none Medication administrations:: Medication Administration History Discontinued Medications Ceftriaxone Sodium 1,000 mg/ (Lidocaine HCl 2.1 ml) 0 mg IM X1 ONE Stop: 10/21/24 21:06 Last Admin: 10/21/24 21:18 Dose: 2.1 mg Documented By: CB see [facility] Consultations Consultation(s) initiated? (list below): No Diagnosis Urogenital Female Differential Diagnosis: urinary tract infection and other (appendicitis, cholecystis, pylenephritis ) Most likely diagnosis given after review of the tests above:: uti Admission Indicated Admission indicated?: not indicated Admission Request Was there a request for admission?: No Disposition Plan Disposition Plan: Discharge Discharge Attestation Discharge Attestation: The patient and all family members were given an opportunity to ask questions and understood the discharge instructions. Discharge instructions specifically effects, indications for sooner follow up or return to the emergency department, and the expected course of current diagnosis. Patient condition: Stable Discharge Plan Plan Patient Disposition: HOME (Self Care) Patient condition on transfer: Stable Prescriptions/Referrals Prescriptions/Med Rec: No Action benzonatate 200 mg capsule 200 mg PO BID PRN losartan 100 mg tablet 100 mg PO QDAY pantoprazole 20 mg tablet,delayed release (DR/EC) 20 mg PO QDAY sertraline 25 mg tablet 25 mg PO QDAY zolpidem 5 mg tablet 5 mg PO QHS clonidine HCl 0.1 mg tablet 0.1 mg PO BID ondansetron HCl 8 mg tablet 8 mg PO Q8H hydrocodone-acetaminophen 2.5-325 mg tablet 1 tab PO Q6H PRN levothyroxine 125 mcg tablet 125 mcg PO QDAY Patient Comments: 125 mcg PO ACBR zolpidem 5 mg Tablet 5 mg PO QHSPRN PRN (Reason: Insomnia) gabapentin 100 mg Capsule 100 mg PO TID Referrals: Eh Galo MD [Primary Care Provider] - In 1 week Problem List Clinical Impression: Acute UTI Patient/Caregiver Discharge Instructions Discharge Activity: activity as tolerated Education Materials: ED CYSTITIS Female Adult Additional Instructions: Follow up with primary provider in 1-2 days. Come back to ED if symptoms change or worsen. CT abdomen and pelvis: FINDINGS: LIVER: Multiple cystic lesions again noted, measuring up to 4.1 cm right hepatic lobe. BILIARY: Unremarkable. PANCREAS: Unremarkable. SPLEEN: Unremarkable. ADRENAL GLANDS: 1.7 cm indeterminate left adrenal nodule. KIDNEYS: Again noted is bilateral perinephric fat stranding. This is moderately increased on the right compared to prior. Again noted is a right-sided extrarenal pelvis. No hydronephrosis. No obstructive nephrolithiasis. URETERS: No stones visualized. No hydroureter. BLADDER: Only mildly distended. CT provides limited evaluation of the urinary bladder. HOLLOW VISCUS: Innumerable colonic diverticula, most severe in the sigmoid colon. No surrounding inflammatory changes. Small hiatal hernia. VASCULATURE: Ectatic aorta and iliac vessels. Moderate aortoiliac calcific atherosclerotic disease calcifications of the mitral annulus, coronary arteries, aortic valve PELVIS: Post hysterectomy changes. LYMPH NODES: Limited evaluation without contrast. Grossly unremarkable. LUNG BASES: Bibasilar emphysematous changes. BONES: Severe degenerative changes of the lumbar spine, including scoliotic curvature, multilevel degenerative disc disease, diffuse osteopenia. Unchanged grade 1 anterolisthesis of L3 on L4 and mild anterior compression deformity. ABDOMINAL WALL: 1.9 cm neck fat filled umbilical hernia.r IMPRESSION: 1. Increased fat stranding about the right kidney without obstructive stone. Query clinical signs of pyelonephritis. 2. Severe diverticulosis without CT findings for diverticulitis. 3. Significant vasculopathic changes. 4. Similar-appearing diffuse osteopenia with mild anterior L3 compression deformity. 5. 1.7 cm indeterminate left adrenal nodule, recommend MR adrenal gland protocol. Print Language: [place] Stand Alone Forms: Hien Award Info., Patient Portal Info Letter PA/TESTING SPECIALIST Supervising Physician PA/TESTING SPECIALIST Supervising Physician: mary kay
[2024-10-21] MEDS: cefTRIAXone 1,000 MG, LIDOCAINE 1% 20 ML 2.1 ML IM (21:18)
[2024-10-21 21:21] VITALS: BP 165/86; PULSE 80; RESP 18; TEMP 36.7; O2SAT 96
== END 2024-10-21 21:22 | disposition home or self-care (01) ==
PROVIDERS: Nurse Practitioner Primary Care; Emergency Provider Emergency Medicine; PCP Family Medicine
DX: N39.0 Urinary tract infection, site not specified (principal); E03.9 Hypothyroidism, unspecified; I10 Essential (primary) hypertension; F32.A Depression, unspecified; K21.9 Gastro-esophageal reflux disease without esophagitis
CPT/HCPCS: 36415; 74176; 80053; 81001; 83690; 85025; 87086; 96372; 99284; J0696; J3490

== ENCOUNTER → 2024-11-14 | Outpatient (CLI) | payer MEDICARE, BC, SELFPAY ==
--- NOTE | 2024-11-14 13:30 | XR_ITS ---
Examination: MRI abdomen with intravenous contrast. MRI abdomen without intravenous contrast. Date and time of exam: October 14, 2024 1343 hours INDICATIONS: History abdominal pain, 20 mm left adrenal mass on MR abdomen February 11, 2021 Technique: Multiple axial, sagittal and coronal sections of the abdomen obtained. Transverse images, TR 6020, TE 107. T1 weighted transverse images, TR 582, TE 9.5. T2-weighted sagittal images, TR 4000, TE 105. T2-weighted sagittal images, TR 4000, TE 5. Coronal images, TR 4210, TE 107. Axial and coronal images are obtained post 20 cc intravenous injection, gadolinium. Findings: Multiple benign liver cysts, the largest in the right lobe 4.7 cm No gallstones Normal common hepatic common bile duct no stones Spleen is not enlarged No hydronephrosis Stable 19 mm left adrenal nodule with minimal enhancement No ascites No abdominal lymphadenopathy IMPRESSION: Stable 19 mm left adrenal nodule with minimal enhancement
== END | disposition home or self-care (01) ==
PROVIDERS: PCP Student in an Organized Health Care Education/Training Program; Referring Provider Student in an Organized Health Care Education/Training Program; Visit Provider Student in an Organized Health Care Education/Training Program
DX: E27.8 Other specified disorders of adrenal gland (principal)
CPT/HCPCS: 74183; A9579

== ENCOUNTER → 2025-02-26 | Outpatient (CLI) | payer MEDICARE, BC, SELFPAY | END | disposition home or self-care (01) | LOC: SWHD 13:51 | PROVIDERS: PCP Student in an Organized Health Care Education/Training Program; Referring Provider Student in an Organized Health Care Education/Training Program; Visit Provider Student in an Organized Health Care Education/Training Program | DX: T21.25XA Burn of second degree of buttock, initial encounter (principal); I10 Essential (primary) hypertension; E03.8 Other specified hypothyroidism | CPT/HCPCS: 97597; 99213; A9270; G0463 ==

== ENCOUNTER → 2025-03-07 | Outpatient (CLI) | payer MEDICARE, BC, SELFPAY | END | disposition home or self-care (01) | LOC: SWHD 12:44 | PROVIDERS: PCP Family Medicine; Referring Provider Family Medicine; Visit Provider Student in an Organized Health Care Education/Training Program | DX: T21.25XA Burn of second degree of buttock, initial encounter (principal); L98.8 Other specified disorders of the skin and subcutaneous tissue; I10 Essential (primary) hypertension; E03.8 Other specified hypothyroidism | CPT/HCPCS: 11042; A9270 ==

== ENCOUNTER → 2025-03-14 | Outpatient (CLI) | payer MEDICARE, BC, SELFPAY | END | disposition home or self-care (01) | LOC: SWHD 13:28 | PROVIDERS: PCP Family Medicine; Referring Provider Family Medicine; Visit Provider Student in an Organized Health Care Education/Training Program | DX: T21.25XA Burn of second degree of buttock, initial encounter (principal); L98.8 Other specified disorders of the skin and subcutaneous tissue; I10 Essential (primary) hypertension; E03.8 Other specified hypothyroidism | CPT/HCPCS: 11042; A9270 ==

== ENCOUNTER → 2025-03-21 | Outpatient (CLI) | payer MEDICARE, BC, SELFPAY | END | disposition home or self-care (01) | LOC: SWHD 14:32 | PROVIDERS: PCP Family Medicine; Referring Provider Family Medicine; Visit Provider Student in an Organized Health Care Education/Training Program | DX: T21.25XA Burn of second degree of buttock, initial encounter (principal); L98.8 Other specified disorders of the skin and subcutaneous tissue; I10 Essential (primary) hypertension; E03.8 Other specified hypothyroidism | CPT/HCPCS: 99213; G0463 ==